=== PATIENT | male | born 1955 ===

== ENCOUNTER 2022-04-07 06:00 | Outpatient (RCR) | payer MEDICARE, SELFPAY | END 2022-04-29 23:59 | disposition home or self-care (01) | LOC: SPT 06:00 | PROVIDERS: Visit Provider Orthopaedic Surgery | DX: Z47.1 Aftercare following joint replacement surgery (principal); Z96.652 Presence of left artificial knee joint | CPT/HCPCS: 97110; 97161; G0283 ==

== ENCOUNTER 2022-04-30 06:00 | Outpatient (RCR) | payer MEDICARE, SELFPAY | END 2022-05-30 23:59 | disposition home or self-care (01) | LOC: SPT 06:00 | PROVIDERS: Visit Provider Orthopaedic Surgery | DX: Z47.1 Aftercare following joint replacement surgery (principal); Z96.652 Presence of left artificial knee joint | CPT/HCPCS: 97110; 97112; G0283 ==

== ENCOUNTER 2022-05-31 06:00 | Outpatient (RCR) | payer MEDICARE, SELFPAY | END 2022-06-29 23:59 | disposition home or self-care (01) | LOC: SPT 06:00 | PROVIDERS: Visit Provider Orthopaedic Surgery | DX: Z47.1 Aftercare following joint replacement surgery (principal); Z96.652 Presence of left artificial knee joint | CPT/HCPCS: 97110; 97140; G0283 ==

== ENCOUNTER 2022-06-30 06:00 | Outpatient (RCR) | payer MEDICARE, SELFPAY | END 2022-07-30 23:59 | disposition home or self-care (01) | LOC: SPT 06:00 | PROVIDERS: Visit Provider Orthopaedic Surgery | DX: Z47.1 Aftercare following joint replacement surgery (principal); Z96.652 Presence of left artificial knee joint | CPT/HCPCS: 97110; G0283 ==

== ENCOUNTER 2022-08-05 20:00 | Outpatient (CLI) | payer MEDICARE, SELFPAY | END 2022-08-05 20:01 | disposition home or self-care (01) | LOC: SLEEP 08-06 05:01 | PROVIDERS: Visit Provider Specialist | DX: G47.33 Obstructive sleep apnea (adult) (pediatric) (principal) | CPT/HCPCS: 95810 ==

== ENCOUNTER 2022-08-25 06:00 | Outpatient (RCR) | payer MEDICARE, SELFPAY | END 2022-08-29 23:59 | disposition home or self-care (01) | LOC: MPT 06:00 | PROVIDERS: Visit Provider Orthopaedic Surgery | DX: Z47.89 Encounter for other orthopedic aftercare (principal) | CPT/HCPCS: 97161; G0283 ==

== ENCOUNTER 2022-08-30 06:00 | Outpatient (RCR) | payer MEDICARE, SELFPAY | END 2022-09-25 23:59 | disposition home or self-care (01) | LOC: MPT 06:00 | PROVIDERS: Visit Provider Orthopaedic Surgery | DX: Z47.89 Encounter for other orthopedic aftercare (principal) | CPT/HCPCS: 97110; 97116; 97530; G0283 ==

== ENCOUNTER → 2022-12-13 10:27 | Outpatient (BNVA) | payer MEDICARE, SELFPAY | PROVIDERS: Visit Provider Emergency Medicine | DX: R69 Illness, unspecified (principal); R11.0 Nausea; Z20.822 Contact with and (suspected) exposure to COVID-19 | CPT/HCPCS: 87400; 87426 ==

== ENCOUNTER 2023-11-01 06:00 | Outpatient (RCR) | payer MEDICARE, SELFPAY | END 2023-11-30 23:59 | disposition home or self-care (01) | LOC: MPT 06:00 | PROVIDERS: Visit Provider Physician Assistant | DX: Z47.89 Encounter for other orthopedic aftercare (principal) | CPT/HCPCS: 97110; 97140; 97162; G0283 ==

== ENCOUNTER 2023-12-01 06:00 | Outpatient (RCR) | payer MEDICARE, SELFPAY | END 2023-12-31 23:59 | disposition home or self-care (01) | LOC: MPT 06:00 | PROVIDERS: Visit Provider Physician Assistant | DX: Z98.890 Other specified postprocedural states (principal) | CPT/HCPCS: 97110; 97140; G0283 ==

== ENCOUNTER 2024-01-01 06:00 | Outpatient (RCR) | payer MEDICARE, SELFPAY | END 2024-01-30 23:59 | disposition home or self-care (01) | LOC: MPT 06:00 | PROVIDERS: Visit Provider Physician Assistant | DX: Z98.890 Other specified postprocedural states (principal) | CPT/HCPCS: 97110; 97140; G0283 ==

== ENCOUNTER 2024-01-31 06:00 | Outpatient (RCR) | payer MEDICARE, SELFPAY | END 2024-03-01 23:59 | disposition home or self-care (01) | LOC: MPT 06:00 | PROVIDERS: Visit Provider Physician Assistant | DX: Z47.89 Encounter for other orthopedic aftercare (principal) | CPT/HCPCS: 97110; 97140; G0283 ==

== ENCOUNTER 2024-03-02 06:00 | Outpatient (RCR) | payer MEDICARE, SELFPAY | END 2024-04-01 23:59 | disposition home or self-care (01) | LOC: MPT 06:00 | PROVIDERS: Visit Provider Physician Assistant | DX: Z47.89 Encounter for other orthopedic aftercare (principal) | CPT/HCPCS: 97110; 97140; G0283 ==

== ENCOUNTER 2024-04-02 06:30 | Outpatient (RCR) | payer MEDICARE, SELFPAY | END 2024-04-29 23:59 | disposition home or self-care (01) | LOC: MPT 06:30 | PROVIDERS: Visit Provider Physician Assistant | DX: Z98.890 Other specified postprocedural states (principal) | CPT/HCPCS: 97110; 97140; G0283 ==

== ENCOUNTER 2024-04-30 06:00 | Outpatient (RCR) | payer MEDICARE, SELFPAY | END 2024-05-30 23:59 | disposition home or self-care (01) | LOC: MPT 06:00 | PROVIDERS: Visit Provider Physician Assistant | DX: Z98.890 Other specified postprocedural states (principal) | CPT/HCPCS: 97110 ==